=== PATIENT | female | born 1965 | race African-American/Black ===

== ENCOUNTER 2016-12-09 11:10 | Inpatient (IN) | payer OTHER ==
[2016-12-09 13:06] VITALS: BMI 25.8
--- NOTE | 2016-12-09 14:57 | HP ---
CIWA Score - CIWA Score Nausea/Vomitin-No Nausea/No Vomiting Muscle Tremors: 4-Moderate,w/Arms Extend Anxiety: 3 Agitation: 4-Moderately Restless Paroxysmal Sweats: 3 Orientation: 0-Oriented Tacttile Disturbances: 0-None Auditory Disturbances: 0-None Visual Disturbances: 0-None Headache: 2-Mild CIWA-Ar Total Score: 16 Admission ROS BHS - HPI Chief Complaint: I am here to detox. Allergies/Adverse Reactions: Allergies Allergy/AdvReac Type Severity Reaction Status Date / Time No Known Allergies Allergy Verified 12/09/16 13:42 History of Present Illness: pt is a 50yr old female with a history of alcohol dependence seeking detox for treatment. Pt is also on a MMTP program receives 150mg last dose today; pending verification. Exam Limitations: No Limitations - Ebola screening Have you traveled outside of the country in the last 21 days: No Have you had contact with anyone from an Ebola affected area: No Have you been sick,other than usual withdrawal symptoms: No Do you have a fever: No - Review of Systems Constitutional: Chills, Diaphoresis, Loss of Appetite, Night Sweats, Unintentional Wgt. Loss EENT: reports: No Symptoms Reported Respiratory: reports: No Symptoms reported Cardiac: reports: Syncope GI: reports: Nausea, Vomiting : reports: No Symptoms Reported, Other (had received ABX for trichanomas on 04/25 took all 4 pills. denies any vaginal d/c at present. encourged to advised medical for any changes.) Musculoskeletal: reports: No Symptoms Reported Integumentary: reports: Flushing, Rash (under breast), Sweating Neuro: reports: Tingling, Tremors Endocrine: reports: Excessive Sweating, Flushing, Intolerance to Cold, Intolerance to Heat, Other (I am going through menapause) Hematology: reports: No Symptoms Reported Psychiatric: reports: Judgement Intact, Mood/Affect Appropiate, Orientated x3, Agitated, Anxious Other Systems: Reviewed and Negative Patient History - Patient Medical History Hx Anemia: Yes Hx Asthma: No Hx Chronic Obstructive Pulmonary Disease (COPD): Yes (spiriva) Hx Cancer: No Hx Cardiac Disorders: No Hx Congestive Heart Failure: No Hx Hypertension: Yes (procardia) Hx Hypercholesterolemia: No Hx Pacemaker: No HX Cerebrovascular Accident: No Hx Seizures: No Hx Dementia: No Hx Diabetes: No Hx Gastrointestinal Disorders: No Hx Liver Disease: No Hx Genitourinary Disorders: No Hx Sexually Transmitted Disorders: No Hx Renal Disease (ESRD): No Hx Thyroid Disease: No Hx Human Immunodeficiency Virus (HIV): No (negative) Hx Hepatitis C: No (negative) Hx Depression: Yes Hx Suicide Attempt: No (denies) Hx Bipolar Disorder: Yes Hx Schizophrenia: No Other Medical History: ptsd - Patient Surgical History Past Surgical History: No Anesthesia Reaction: No - PPD History Previous Implant?: Yes Documented Results: Negative w/o proof Implanted On Prior [facility] Admission?: No PPD to be Administered?: Yes - Reproductive History Patient is a Female of Child Bearing Age (11 -55 yrs old): No Patient : No - Smoking Cessation Smoking history: Current every day smoker Have you smoked in the past 12 months: Yes Aproximately how many cigarettes per day: 4 Hx Chewing Tobacco Use: No Initiated information on smoking cessation: Yes 'Breaking Loose' booklet given: 12/09/16 - Substance & Tx. History Hx Alcohol Use: Yes Hx Substance Use: No Substance Use Type: Alcohol Hx Substance Use Treatment: Yes - Substances Abused Alcohol Route: Oral Frequency: Daily Amount used: beer(4-6 pks-24 oz cans) Age of first use: 27 Date of Last Use: 12/09/16 Family Disease History - Family Disease History Family History: Denies Admission Physical Exam S - Vital Signs Vital Signs: Vital Signs - 24 hr 12/09/16 13:02 Temperature 97 F L Pulse Rate 84 Respiratory 20 Rate Blood Pressure 146/96 - Physical General Appearance: Yes: Appropriately Dressed, Moderate Distress, Tremorous, Irritable, Sweating, Anxious HEENTM: Yes: Normal Voice, Nasal Congestion Respiratory: Yes: Lungs Clear, Normal Breath Sounds, No Respiratory Distress Neck: Yes: No masses,lesions,Nodules Breast: Yes: Within Normal Limits Cardiology: Yes: Regular Rhythm, Regular Rate, S1, S2 Abdominal: Yes: Normal Bowel Sounds, Non Tender, Soft Genitourinary: Yes: Within Normal Limits Back: Yes: Normal Inspection Musculoskeletal: Yes: full range of Motion Extremities: Yes: Normal Inspection, Non-Tender, Tremors Neurological: Yes: Fully Oriented, Alert, Normal Response Integumentary: Yes: Diaphoresis Lymphatic: Yes: Within Normal Limits - Diagnostic (1) Alcohol dependence with uncomplicated withdrawal Current Visit: Yes Status: Chronic (2) Methadone maintenance therapy patient Current Visit: Yes Status: Chronic (3) Nicotine dependence Current Visit: Yes Status: Chronic Qualifiers: Nicotine product type: cigarettes Substance use status: uncomplicated Qualified Code(s): F17.210 - Nicotine dependence, cigarettes, uncomplicated (4) COPD (chronic obstructive pulmonary disease) Current Visit: Yes Status: Chronic (5) Post traumatic stress disorder (PTSD) Current Visit: Yes Status: Chronic Cleared for Admission [facility] - Detox or Rehab [facility] Level of Care: Medically Managed Detox Regimen/Protocol: Librium [facility] Breath Alcohol Content Breath Alcohol Content: 0.212 Urine Pregancy Test - Result Urine Test Results: Negative- NO Line Present Urine Drug Screen - Results Drug Screen Negative: No Urine Drug Screen Results: OPI-Opiates, BZO-Benzodiazepines, MTD-Methadone
[2016-12-09] MEDS ORDERED: guaiFENesin/D-METHORPHAN HB 10 ML UNIT-DOSE CUPS PO PRN (15:31)
[2016-12-09] MEDS ORDERED: MENTHOL/PHENOL 1 EACH UD MM PRN (15:31)
[2016-12-09] MEDS ORDERED: LOPERAMIDE HCL 2 MG CAPSULE PO PRN (15:31)
[2016-12-09] MEDS ORDERED: ACETAMINOPHEN 325 MG TABLET (FP) PO PRN (15:31)
[2016-12-09] MEDS ORDERED: hydrOXYzine PAMOATE 50 MG CAPSULE (FP) PO PRN (15:31)
[2016-12-09] MEDS ORDERED: chlordiazePOXIDE HCL 25 MG CAPSULE PO PRN (15:31)
[2016-12-09] MEDS ORDERED: MAGNESIUM HYDROX 2400MG/30ML ORAL SUSPENSION 30 ML CUP PO PRN (15:31)
[2016-12-09] MEDS ORDERED: MAGNESIUM CITRATE 300 ML BOTTLE PO PRN (15:31)
[2016-12-09] MEDS ORDERED: P-EPHED 60MG/TRIPROLIDI 2.5MG TABLET PO PRN (15:31)
[2016-12-09] MEDS ORDERED: diphenhydrAMINE HCL 50 MG CAPSULE PO PRN (15:31)
[2016-12-09] MEDS ORDERED: NICOTINE POLACRILEX 4 MG GUM BC PRN (15:31)
[2016-12-09] MEDS ORDERED: MAG HYDROX/AL HYDROX/SIMETH 30 ML UNIT-DOSE CUP PO PRN (15:31)
[2016-12-09] MEDS ORDERED: ALBUTEROL SO4 2.5/IPRATROPIUM 0.5 INH SOL 3 ML VIAL.NEB. NEB PRN (15:36)
[2016-12-09] MEDS: ASPIRIN COATED 81 MG TABLET.EC PO SCH (16:00)
[2016-12-09] MEDS: NIFEdipine E.R. 30 MG TABLET (FP) PO SCH (16:00)
[2016-12-09] MEDS ORDERED: chlordiazePOXIDE HCL 25 MG CAPSULE PO ONE (16:00)
[2016-12-09] MEDS ORDERED: ALBUTEROL SO4 2.5/IPRATROPIUM 0.5 INH SOL 3 ML VIAL.NEB. NEB ONE (16:00)
[2016-12-09] MEDS: chlordiazePOXIDE HCL 25 MG CAPSULE PO SCH ×2 (17:10→22:29)
[2016-12-09] MEDS: TIOTROPIUM BROMIDE NR SCH ×2 (18:36→23:35)
[2016-12-09 20:23] LABS: URINE APPEARANCE CLEAR; URINE BILIRUBIN NEGATIVE (NEGATIVE); URINE BLOOD 1+ (NEGATIVE); URINE COLOR STRAW; URINE GLUCOSE (UA) NEGATIVE (NEGATIVE); URINE KETONE NEGATIVE (NEGATIVE); URINE LEUK ESTERASE NEGATIVE (NEGATIVE); URINE NITRITE NEGATIVE (NEGATIVE); URINE PROTEIN NEGATIVE (NEGATIVE); URINE UROBILINOGEN NEGATIVE E.U./dl (0.2-1.0)
[2016-12-09 20:28] LABS: URINE RBC 2 /hpf (0-3); URINE WBC <1 /hpf (3-5)
[2016-12-09] MEDS: THIAMINE HCL 100 MG TABLET (FP) PO SCH (22:28)
[2016-12-10] MEDS: chlordiazePOXIDE HCL 25 MG CAPSULE PO SCH ×4 (05:48→22:29)
[2016-12-10] MEDS ORDERED: METHADONE HCL 10 MG TABLET PO SCH (10:00)
[2016-12-10 10:33] LABS: ALBUMIN 4.2 g/dl (3.4-5.0); ALK PHOS 380 U/L (45-117); ANION GAP 7 (8-16); BILIRUBIN,TOTAL 0.4 mg/dL (0.2-1.0); CALCIUM 8.9 mg/dL (8.5-10.1); CO2 31 mmol/L (21-32); COCKROFT - GAULT 95.3105; CREATININE 0.8 mg/dL (0.55-1.02); GLUCOSE,RANDOM 73 mg/dL (74-106); SGOT/AST 197 U/L (15-37); SGPT/ALT 123 U/L (12-78); TOT PROT 8.3 g/dl (6.4-8.2)
[2016-12-10 10:48] LABS: MCH 30.6 pg (25.7-33.7); MCHC 33.2 g/dl (32.0-36.0); MEAN CELL VOLUME 92.2 fl (80-96); MEAN PLT VOLUME 8.7 fl (7.5-11.1); PLATELET COUNT 223 K/MM3 (134-434); RDW 14.3 % (11.6-15.6); WHITE BLOOD COUNT 6.4 K/mm3 (4.0-10.0)
[2016-12-10] MEDS ORDERED: METHADONE HCL 40 MG DISPERSABLE TABLET ONE (10:50)
[2016-12-10] MEDS ORDERED: METHADONE HCL 10 MG TABLET ONE (10:50)
[2016-12-10] MEDS: METHADONE 120 MG, METHADONE 30 MG PO SCH (10:51)
[2016-12-10] MEDS: TIOTROPIUM BROMIDE NR SCH ×2 (10:52→22:32)
[2016-12-10] MEDS: PRENATAL VITAMINS W/ FOLIC ACID TABLET (FP) PO SCH (10:52)
[2016-12-10] MEDS: NIFEdipine E.R. 30 MG TABLET (FP) PO SCH (10:53)
[2016-12-10] MEDS: ASPIRIN COATED 81 MG TABLET.EC PO SCH (10:53)
[2016-12-10] MEDS: NICOTINE 21 MG/24 HOURS TOPICAL PATCH TD SCH (10:54)
--- NOTE | 2016-12-10 13:52 | PN ---
[facility] CIWA - CIWA Score Nausea/Vomitin Muscle Tremors: 4-Moderate,w/Arms Extend Anxiety: 4-Mod. Anxious/Guarded Agitation: 4-Moderately Restless Paroxysmal Sweats: 3 Orientation: 0-Oriented Tacttile Disturbances: 0-None Auditory Disturbances: 0-None Visual Disturbances: 0-None Headache: 0-None Present CIWA-Ar Total Score: 17 BHS Progress Note (SOAP) Subjective: Sweating,interrupted sleep,anxiety,tremors,restless. Objective: 12/10/16 13:50 Vital Signs - 8 hr 12/10/16 12/10/16 06:36 10:00 Temperature 98.1 F 97.7 F Pulse Rate 76 86 Respiratory 18 18 Rate Blood Pressure 138/90 123/74 Laboratory Last Values WBC 6.4 K/mm3 (4.0-10.0) 12/10/16 06:00 RBC 4.18 M/mm3 (3.60-5.2) 12/10/16 06:00 Hgb 12.8 GM/dL (10.7-15.3) 12/10/16 06:00 Hct 38.6 % (32.4-45.2) 12/10/16 06:00 MCV 92.2 fl (80-96) 12/10/16 06:00 MCHC 33.2 g/dl (32.0-36.0) 12/10/16 06:00 RDW 14.3 % (11.6-15.6) 12/10/16 06:00 Plt Count 223 K/MM3 (134-434) 12/10/16 06:00 MPV 8.7 fl (7.5-11.1) 12/10/16 06:00 Sodium 136 mmol/L (136-145) 12/10/16 06:00 Potassium 4.5 mmol/L (3.5-5.1) 12/10/16 06:00 Chloride 98 mmol/L (98-107) 12/10/16 06:00 Carbon Dioxide 31 mmol/L (21-32) 12/10/16 06:00 Anion Gap 7 (8-16) L 12/10/16 06:00 BUN 15 mg/dL (7-18) 12/10/16 06:00 Creatinine 0.8 mg/dL (0.55-1.02) 12/10/16 06:00 Creat Clearance w eGFR > 60 (>60) 12/10/16 06:00 Random Glucose 73 mg/dL (74-106) L 12/10/16 06:00 Calcium 8.9 mg/dL (8.5-10.1) 12/10/16 06:00 Total Bilirubin 0.4 mg/dL (0.2-1.0) 12/10/16 06:00 AST 197 U/L (15-37) H 12/10/16 06:00 ALT 123 U/L (12-78) H 12/10/16 06:00 Alkaline Phosphatase 380 U/L (45-117) H 12/10/16 06:00 Total Protein 8.3 g/dl (6.4-8.2) H 12/10/16 06:00 Albumin 4.2 g/dl (3.4-5.0) 12/10/16 06:00 Urine Color Straw 12/09/16 13:00 Urine Appearance Clear 12/09/16 13:00 Urine pH 5.0 (5.0-8.0) 12/09/16 13:00 Ur Specific [place] <= 1.005 (1.005-1.025) 12/09/16 13:00 Urine Protein Negative (NEGATIVE) 12/09/16 13:00 Urine Glucose (UA) Negative (NEGATIVE) 12/09/16 13:00 Urine Ketones Negative (NEGATIVE) 12/09/16 13:00 Urine Blood 1+ (NEGATIVE) H 12/09/16 13:00 Urine Nitrite Negative (NEGATIVE) 12/09/16 13:00 Urine Bilirubin Negative (NEGATIVE) 12/09/16 13:00 Urine Urobilinogen Negative E.U./dl (0.2-1.0) 12/09/16 13:00 Ur Leukocyte Esterase Negative (NEGATIVE) 12/09/16 13:00 Urine RBC 2 /hpf (0-3) 12/09/16 13:00 Urine WBC <1 /hpf (3-5) 12/09/16 13:00 Ur Epithelial Cells Few /hpf (FEW) 12/09/16 13:00 labs noted Assessment: 12/10/16 13:51 Withdrawal sx. Plan: Continue detox
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
--- NOTE | 2016-12-10 19:24 | EKG ---
Test Reason : Blood Pressure : / mmHG Vent. Rate : 071 BPM Atrial Rate : 071 BPM P-R Int : 172 ms QRS Dur : 092 ms QT Int : 416 ms P-R-T Axes : 055 057 035 degrees QTc Int : 452 ms NORMAL SINUS RHYTHM NONSPECIFIC T WAVE ABNORMALITY ABNORMAL ECG NO PREVIOUS ECGS AVAILABLE Confirmed by JOE BRYANT MD ([id number]) on 12/10/2016 7:23:33 PM Referred By: Confirmed By:JOE BRYANT MD
[2016-12-10] MEDS: busPIRone HCL 10 MG TABLET (FP) PO SCH (22:30)
[2016-12-10] MEDS: MIRTAZAPINE 15 MG TABLET (FP) PO SCH (22:30)
[2016-12-10] MEDS: QUEtiapine FUMARATE 100 MG TABLET (FP) PO SCH (22:30)
[2016-12-10] MEDS: THIAMINE HCL 100 MG TABLET (FP) PO SCH (22:32)
[2016-12-11] MEDS ORDERED: METHADONE HCL 40 MG DISPERSABLE TABLET ONE (05:07)
[2016-12-11] MEDS ORDERED: METHADONE HCL 10 MG TABLET ONE (05:08)
[2016-12-11] MEDS: METHADONE 120 MG, METHADONE 30 MG PO SCH (05:45)
[2016-12-11] MEDS: chlordiazePOXIDE HCL 25 MG CAPSULE PO SCH ×2 (07:19→10:34)
[2016-12-11] MEDS: PRENATAL VITAMINS W/ FOLIC ACID TABLET (FP) PO SCH (10:33)
[2016-12-11] MEDS: busPIRone HCL 10 MG TABLET (FP) PO SCH ×2 (10:33→22:27)
[2016-12-11] MEDS: NIFEdipine E.R. 30 MG TABLET (FP) PO SCH (10:33)
[2016-12-11] MEDS: TIOTROPIUM BROMIDE NR SCH ×2 (10:33→22:28)
[2016-12-11] MEDS: ASPIRIN COATED 81 MG TABLET.EC PO SCH (10:33)
[2016-12-11] MEDS: NICOTINE 21 MG/24 HOURS TOPICAL PATCH TD SCH (10:37)
--- NOTE | 2016-12-11 10:50 | PN ---
S CIWA - CIWA Score Nausea/Vomitin-No Nausea/No Vomiting Muscle Tremors: 4-Moderate,w/Arms Extend Anxiety: 3 Agitation: 4-Moderately Restless Paroxysmal Sweats: 3 Orientation: 0-Oriented Tacttile Disturbances: 0-None Auditory Disturbances: 0-None Visual Disturbances: 0-None Headache: 0-None Present CIWA-Ar Total Score: 14 BHS Progress Note (SOAP) Subjective: Anxiety,tremors,sweating,interrupted sleep,restless Objective: 12/11/16 10:49 Vital Signs - 8 hr 12/11/16 12/11/16 12/11/16 03:30 06:00 09:59 Temperature 97.9 F 99.7 F H Pulse Rate 86 83 Respiratory 18 18 18 Rate Blood Pressure 124/79 116/80 Laboratory Tests 12/09/16 12/10/16 12/10/16 13:00 06:00 06:00 WBC 6.4 RBC 4.18 Hgb 12.8 Hct 38.6 MCV 92.2 MCHC 33.2 RDW 14.3 Plt Count 223 MPV 8.7 Sodium 136 Potassium 4.5 Chloride 98 Carbon Dioxide 31 Anion Gap 7 L BUN 15 Creatinine 0.8 Creat Clearance w eGFR > 60 Random Glucose 73 L Calcium 8.9 Total Bilirubin 0.4 AST 197 H ALT 123 H Alkaline Phosphatase 380 H Total Protein 8.3 H Albumin 4.2 Urine Color Straw Urine Appearance Clear Urine pH 5.0 Ur Specific [place] <= 1.005 Urine Protein Negative Urine Glucose (UA) Negative Urine Ketones Negative Urine Blood 1+ H Urine Nitrite Negative Urine Bilirubin Negative Urine Urobilinogen Negative Ur Leukocyte Esterase Negative Urine RBC 2 Urine WBC <1 Ur Epithelial Cells Few labs noted Assessment: 12/11/16 10:49 Withdrawal sx. Plan: Continue detox
[2016-12-11] MEDS: chlordiazePOXIDE 5 MG CAPSULE PO SCH ×2 (17:07→22:27)
[2016-12-11] MEDS: MIRTAZAPINE 15 MG TABLET (FP) PO SCH (22:28)
[2016-12-11] MEDS: QUEtiapine FUMARATE 100 MG TABLET (FP) PO SCH (22:28)
[2016-12-11] MEDS: THIAMINE HCL 100 MG TABLET (FP) PO SCH (22:29)
[2016-12-12] MEDS: IBUPROFEN 400 MG TABLET (FP) PO PRN ×2 (01:42→17:16)
[2016-12-12] MEDS ORDERED: METHADONE HCL 40 MG DISPERSABLE TABLET ONE (03:46)
[2016-12-12] MEDS ORDERED: METHADONE HCL 10 MG TABLET ONE (03:47)
[2016-12-12] MEDS: chlordiazePOXIDE 5 MG CAPSULE PO SCH ×2 (05:40→10:42)
[2016-12-12] MEDS: METHADONE 120 MG, METHADONE 30 MG PO SCH (05:40)
--- NOTE | 2016-12-12 09:53 | PN ---
BHS Progress Note (SOAP) Subjective: back pain sweats Objective: 12/12/16 12:38 Vital Signs Temperature 98.2 F 12/12/16 10:00 Pulse Rate 88 12/12/16 10:00 Respiratory Rate 20 12/12/16 10:00 Blood Pressure 106/68 12/12/16 10:00 O2 Sat by Pulse Oximetry (%) awake/alert ambulating no acute distress Assessment: 12/12/16 12:38 mild withdrawal sx Plan: continue detox lidocaine patch d/c in am
[2016-12-12] MEDS: NICOTINE 21 MG/24 HOURS TOPICAL PATCH TD SCH (10:41)
[2016-12-12] MEDS: busPIRone HCL 10 MG TABLET (FP) PO SCH ×2 (10:42→22:22)
[2016-12-12] MEDS: NIFEdipine E.R. 30 MG TABLET (FP) PO SCH (10:42)
[2016-12-12] MEDS: PRENATAL VITAMINS W/ FOLIC ACID TABLET (FP) PO SCH (10:42)
[2016-12-12] MEDS: ASPIRIN COATED 81 MG TABLET.EC PO SCH (10:42)
[2016-12-12] MEDS: TIOTROPIUM BROMIDE NR SCH ×2 (10:42→22:23)
[2016-12-12] MEDS ORDERED: LIDOCAINE 5% TOPICAL PATCH TP ONE (12:40)
[2016-12-12 14:15] LABS: ALK PHOS 252 U/L (45-117); SGOT/AST 42 U/L (15-37); SGPT/ALT 57 U/L (12-78)
[2016-12-12] MEDS: chlordiazePOXIDE HCL 10 MG CAPSULE PO SCH ×2 (17:14→22:22)
--- NOTE | 2016-12-12 17:43 | PN ---
BHS Progress Note Note: NURSE CALLED TO REPORT PT C/O GREEN SPUTUM X 2 DAYS. TEMP 102.2 NOW. HX COPD PLAN:AUGMENTIN 875 MG PO BID INCREASE PO FLUIDS
[2016-12-12] MEDS: AMOX TR/POT CLAV 875MG/125MG TABLETS (FP) PO SCH (17:59)
[2016-12-12] MEDS ORDERED: LIDOCAINE PATCH REMOVAL MC SCH (22:00)
[2016-12-12] MEDS: MIRTAZAPINE 15 MG TABLET (FP) PO SCH (22:22)
[2016-12-12] MEDS: QUEtiapine FUMARATE 100 MG TABLET (FP) PO SCH (22:22)
[2016-12-12] MEDS: THIAMINE HCL 100 MG TABLET (FP) PO SCH (22:22)
[2016-12-13] MEDS ORDERED: METHADONE HCL 10 MG TABLET ONE (05:14)
[2016-12-13] MEDS ORDERED: METHADONE HCL 40 MG DISPERSABLE TABLET ONE (05:14)
[2016-12-13] MEDS: METHADONE 120 MG, METHADONE 30 MG PO SCH (07:07)
[2016-12-13] MEDS: AMOX TR/POT CLAV 875MG/125MG TABLETS (FP) PO SCH (07:08)
[2016-12-13] MEDS: chlordiazePOXIDE HCL 10 MG CAPSULE PO SCH ×2 (07:08→10:43)
[2016-12-13] MEDS: IBUPROFEN 400 MG TABLET (FP) PO PRN (07:10)
--- NOTE | 2016-12-13 09:31 | DS ---
[facility] Detox Discharge Summary Admission Date: 12/09/16 Discharge Date: 12/13/16 - History Present History: Alcohol Dependence, MMTP Additional Comments: pt was advised to stay for a chest x-ray since she was having a low grade temp last night; however pt refused for this test and would want to have ABX and she will f/u with her PMD on the outside. V/S before d/c 125/75 pulse 101, RR 16 temp 99.3. pt is AAOx3, no respiratory distress. - Physical Exam Results Vital Signs: Vital Signs Temperature 102.2 F H 12/13/16 06:38 Pulse Rate 105 H 12/13/16 06:38 Respiratory Rate 16 12/13/16 06:38 Blood Pressure 122/67 12/13/16 06:38 O2 Sat by Pulse Oximetry (%) - Treatment Hospital Course: Detox Protocol Followed, Detoxed Safely, Responded well, Discharged Condition Good, Rehab Referral Accepted - Medication Discharge Medications: Ambulatory Orders Alprazolam [Xanax] 2 mg PO DAILY 12/09/16 Aspirin [Ecotrin] 81 mg PO DAILY 12/09/16 Buspirone HCl [Buspar -] 10 mg PO BID 12/09/16 Mirtazapine [Remeron -] 30 mg PO HS 12/09/16 Nifedipine ER [Procardia Xl -] 30 mg PO DAILY 12/09/16 Quetiapine Fumarate [Seroquel -] 100 mg PO HS 12/09/16 Tiotropium [place] [Spiriva Respimat] 4 gm IH BID 12/09/16 Amox-Tr/K Cl [Augmentin 875-125mg Tablet -] 1 tab PO BID@0800,1730 #14 tablet - Diagnosis (1) Alcohol dependence with uncomplicated withdrawal Current Visit: Yes Status: Chronic (2) Methadone maintenance therapy patient Current Visit: Yes Status: Chronic (3) Nicotine dependence Current Visit: Yes Status: Chronic Qualifiers: Nicotine product type: cigarettes Substance use status: uncomplicated Qualified Code(s): F17.210 - Nicotine dependence, cigarettes, uncomplicated (4) COPD (chronic obstructive pulmonary disease) Current Visit: Yes Status: Chronic Qualifiers: Chronic bronchitis type: unspecified (5) Post traumatic stress disorder (PTSD) Current Visit: Yes Status: Chronic - AMA Did Patient Leave Against Medical Advice: No
[2016-12-13] MEDS: PRENATAL VITAMINS W/ FOLIC ACID TABLET (FP) PO SCH (10:42)
[2016-12-13] MEDS: ASPIRIN COATED 81 MG TABLET.EC PO SCH (10:42)
[2016-12-13] MEDS: NIFEdipine E.R. 30 MG TABLET (FP) PO SCH (10:42)
[2016-12-13] MEDS: busPIRone HCL 10 MG TABLET (FP) PO SCH (10:42)
[2016-12-13] MEDS: NICOTINE 21 MG/24 HOURS TOPICAL PATCH TD SCH (10:43)
[2016-12-13] MEDS: TIOTROPIUM BROMIDE NR SCH (10:43)
[2016-12-13 10:53] VITALS: BP 125/75; PULSE 101; TEMP 99.3
--- NOTE | 2016-12-13 11:57 | PN ---
BHS Progress Note Note: chest x-ray indicate a right middle lobe infiltrate and she is to follow up with her PMD. pt is also to continue her ABX as prescribed. A copy of chest x- ray report provided for pt to take home.
== END 2016-12-13 13:20 | disposition home or self-care (01) | DRG 773 ==
LOC: EDSEX 11:10 → YASAS 11:10 → Y6N 14:34
PROVIDERS: ADMIT Internal Medicine; ATTEND Internal Medicine
PROC: HZ2ZZZZ Detoxification Services for Substance Abuse Treatment (ICD-10-PCS; principal; 2016-12-13)
DX: F11.20 Opioid dependence, uncomplicated (principal); F10.230 Alcohol dependence with withdrawal, uncomplicated; F17.210 Nicotine dependence, cigarettes, uncomplicated; F19.24 Other psychoactive substance dependence with psychoactive substance-induced mood disorder; F43.10 Post-traumatic stress disorder, unspecified; G47.00 Insomnia, unspecified; J44.9 Chronic obstructive pulmonary disease, unspecified
CPT/HCPCS: 36415; 71020-TC; 80053; 81003; 81015; 84075; 84450; 84460; 85027; 86593; 93005; 93010; 94640

== ENCOUNTER 2023-07-20 20:27 | Inpatient (IN) | payer OTHER ==
[2023-07-20 21:47] VITALS: BMI 16.9
[2023-07-20] MEDS ORDERED: BISMUTH SUBSALICYLATE 524 MG/30 ML PO PRN (22:44)
[2023-07-20] MEDS ORDERED: MAG HYDROX/AL HYDROX/SIMETH 30 ML UNIT-DOSE CUP PO PRN (22:44)
[2023-07-20] MEDS ORDERED: DICYCLOMINE HCL 10 MG CAPSULE PO PRN (22:44)
[2023-07-20] MEDS ORDERED: BENZONATATE 200 MG CAPSULE PO PRN (22:44)
[2023-07-20] MEDS ORDERED: NICOTINE POLACRILEX 2 MG LOZENGE BC PRN (22:44)
[2023-07-20] MEDS ORDERED: BENZOCAINE/MENTHOL (CHLORASEPTIC ) LOZENGE MM PRN (22:44)
[2023-07-20] MEDS ORDERED: guaiFENesin 600 MG TABLET.ER (FP) PO PRN (22:44)
[2023-07-20] MEDS ORDERED: MAGNESIUM HYDROX 2400MG/30ML ORAL SUSPENSION 30 ML CUP PO PRN (22:44)
[2023-07-20] MEDS ORDERED: NALOXONE HCL (KLOXXADO) 8 MG SPRAY NS PRN (22:44)
[2023-07-20] MEDS ORDERED: NALOXONE HCL 0.4 MG/ML VIAL IM PRN (22:44)
[2023-07-20] MEDS ORDERED: ONDANSETRON *ODT* 4 MG TABLET SL PRN (22:44)
[2023-07-20] MEDS ORDERED: IBUPROFEN 400 MG TABLET (FP) PO PRN (22:44)
[2023-07-20] MEDS ORDERED: IBUPROFEN 600 MG TABLET (FP) PO PRN (22:44)
[2023-07-20] MEDS ORDERED: LOPERAMIDE HCL 2 MG CAPSULE PO PRN (22:44)
[2023-07-20] MEDS ORDERED: POLYETHYLENE GLYCOL (HEALTHYLAX) 3350 17 GM PACKET PO PRN (22:44)
[2023-07-21] MEDS ORDERED: ALBUTEROL SO4 HFA INHALER IH PRN (03:13)
[2023-07-21] MEDS: DOXYCYCLINE HYCLATE 100 MG TABLET PO SCH ×2 (08:46→17:57)
[2023-07-21] MEDS: NICOTINE 14 MG/24 HOURS TOPICAL PATCH TD SCH (09:46)
[2023-07-21] MEDS: AMOX TR/POT CLAV 875MG/125MG TABLETS (FP) PO SCH ×2 (09:46→22:41)
[2023-07-21] MEDS: PRENATAL VITAMINS W/ FOLIC ACID TABLET (FP) PO SCH (09:46)
[2023-07-21 10:17] LABS: CHLORIDE 103 mmol/L (98-107); POTASSIUM 4.5 mmol/L (3.5-5.1); SODIUM 140 mmol/L (136-145)
[2023-07-21 10:26] LABS: CALCIUM 8.2 mg/dL (8.5-10.1)
[2023-07-21 10:27] LABS: ALBUMIN 2.4 g/dl (3.4-5.0); ANION GAP 6 mmol/L (4-13); BLOOD UREA NITROGEN 59.3 mg/dL (7-18); CO2 32 mmol/L (21-32); GLUCOSE,RANDOM 80 mg/dL (74-106)
[2023-07-21 10:30] LABS: CREATININE 1.8 mg/dL (0.55-1.3); SGOT/AST 52 U/L (15-37); SGPT/ALT 49 U/L (13-61)
[2023-07-21 10:32] LABS: TOT PROT 6.5 g/dl (6.4-8.2)
[2023-07-21 10:33] LABS: ALK PHOS 150 U/L (45-117)
[2023-07-21] MEDS ORDERED: methaDONE HCL 10 MG TABLET (FOR DETOX USE ONLY) PO ONE (10:39)
[2023-07-21 10:40] LABS: BILIRUBIN,TOTAL 0.2 mg/dL (0.2-1)
[2023-07-21] MEDS: cloNIDine HCL 0.1 MG TABLET PO PRN (10:58)
[2023-07-21 11:05] LABS: HEMATOCRIT 29.6 % (32.4-45.2); HEMOGLOBIN 9.4 GM/dL (10.7-15.3); MCH 26.9 pg (25.7-33.7); MCHC 31.7 g/dl (32.0-36.0); MEAN CELL VOLUME 84.9 fl (80-96); PLATELET COUNT 276 10^3/uL (134-434); RBC 3.48 M/mm3 (3.60-5.2); RDW 18.1 % (11.6-15.6); WHITE BLOOD COUNT 9.1 K/mm3 (4.0-10.0)
[2023-07-21 12:48] LABS: HIV INTERPRETATION NEGATIVE (NEGATIVE)
[2023-07-21] MEDS ORDERED: P-EPHED 60MG/TRIPROLIDI 2.5MG TABLET PO PRN (14:26)
[2023-07-21] MEDS: ACETAMINOPHEN 325 MG TABLET (FP) PO PRN (17:56)
[2023-07-21] MEDS: hydrOXYzine PAMOATE 25 MG CAPSULE (FP) PO PRN (20:47)
[2023-07-21] MEDS: MELATONIN 5 MG TABLETS PO SCH (22:40)
[2023-07-21] MEDS: THIAMINE HCL 100 MG TABLET (FP) PO SCH (22:41)
[2023-07-22] MEDS: DOXYCYCLINE HYCLATE 100 MG TABLET PO SCH ×2 (05:49→18:06)
[2023-07-22] MEDS: cloNIDine HCL 0.1 MG TABLET PO PRN ×2 (05:50→14:56)
[2023-07-22] MEDS: AMOX TR/POT CLAV 875MG/125MG TABLETS (FP) PO SCH ×2 (09:16→23:23)
[2023-07-22] MEDS: PRENATAL VITAMINS W/ FOLIC ACID TABLET (FP) PO SCH (09:17)
[2023-07-22] MEDS: NICOTINE 14 MG/24 HOURS TOPICAL PATCH TD SCH (09:17)
[2023-07-22] MEDS: hydrOXYzine PAMOATE 25 MG CAPSULE (FP) PO PRN ×2 (09:19→18:06)
[2023-07-22] MEDS: NIFEdipine E.R. 30 MG TABLET PO SCH (19:47)
[2023-07-22] MEDS: MELATONIN 5 MG TABLETS PO SCH (23:23)
[2023-07-22] MEDS: THIAMINE HCL 100 MG TABLET (FP) PO SCH (23:23)
[2023-07-23] MEDS: cloNIDine HCL 0.1 MG TABLET PO PRN (05:43)
[2023-07-23] MEDS: DOXYCYCLINE HYCLATE 100 MG TABLET PO SCH ×2 (05:43→17:50)
[2023-07-23] MEDS ORDERED: methaDONE HCL 10 MG TABLET (FOR DETOX USE ONLY) PO ONE (10:00)
[2023-07-23] MEDS: AMOX TR/POT CLAV 875MG/125MG TABLETS (FP) PO SCH ×2 (10:06→22:35)
[2023-07-23] MEDS: NICOTINE 14 MG/24 HOURS TOPICAL PATCH TD SCH (10:07)
[2023-07-23] MEDS: PRENATAL VITAMINS W/ FOLIC ACID TABLET (FP) PO SCH (10:07)
[2023-07-23] MEDS: NIFEdipine E.R. 30 MG TABLET PO SCH (10:07)
[2023-07-23 15:46] LABS: POTASSIUM 4.8 mmol/L (3.5-5.1)
[2023-07-23 15:51] LABS: CALCIUM 8.4 mg/dL (8.5-10.1)
[2023-07-23 15:55] LABS: CREATININE 1.1 mg/dL (0.55-1.3)
[2023-07-23 15:57] LABS: BLOOD UREA NITROGEN 31.4 mg/dL (7-18)
[2023-07-23] MEDS: ACETAMINOPHEN 325 MG TABLET (FP) PO PRN (17:50)
[2023-07-23] MEDS: MELATONIN 5 MG TABLETS PO SCH (22:35)
[2023-07-23] MEDS: THIAMINE HCL 100 MG TABLET (FP) PO SCH (22:35)
[2023-07-24] MEDS: DOXYCYCLINE HYCLATE 100 MG TABLET PO SCH ×2 (05:43→17:17)
[2023-07-24] MEDS: cloNIDine HCL 0.1 MG TABLET PO PRN (05:43)
[2023-07-24] MEDS: hydrOXYzine PAMOATE 25 MG CAPSULE (FP) PO PRN (05:45)
[2023-07-24] MEDS: ACETAMINOPHEN 325 MG TABLET (FP) PO PRN (06:00)
[2023-07-24] MEDS: AMOX TR/POT CLAV 875MG/125MG TABLETS (FP) PO SCH ×2 (09:58→22:16)
[2023-07-24] MEDS: PRENATAL VITAMINS W/ FOLIC ACID TABLET (FP) PO SCH (09:59)
[2023-07-24] MEDS: NICOTINE 14 MG/24 HOURS TOPICAL PATCH TD SCH (09:59)
[2023-07-24] MEDS: NIFEdipine E.R. 30 MG TABLET PO SCH (09:59)
[2023-07-24] MEDS ORDERED: methaDONE HCL 10 MG TABLET PO ONE (10:25)
[2023-07-24] MEDS ORDERED: TIOTROPIUM BROMIDE 2.5 MCG (SPIRIVA) RESPIMAT INHALER IH SCH ×2 (12:35→22:00)
[2023-07-24 17:36] VITALS: RESP 16
[2023-07-24] MEDS: MELATONIN 5 MG TABLETS PO SCH (22:16)
[2023-07-24] MEDS: THIAMINE HCL 100 MG TABLET (FP) PO SCH (22:16)
[2023-07-25] MEDS: DOXYCYCLINE HYCLATE 100 MG TABLET PO SCH (05:56)
[2023-07-25 06:28] VITALS: BP 143/83; PULSE 67; TEMP 99.1
[2023-07-25] MEDS ORDERED: methaDONE HCL 10 MG TABLET (FOR DETOX USE ONLY) PO ONE (10:00)
[2023-07-25] MEDS: PRENATAL VITAMINS W/ FOLIC ACID TABLET (FP) PO SCH (10:46)
== END 2023-07-25 08:38 | disposition home or self-care (01) | DRG 773 ==
LOC: YASAS 20:27 → Y3N 07-21 02:06
PROVIDERS: ADMIT Allergy & Immunology; ATTEND Allergy & Immunology
PROC: HZ2ZZZZ Detoxification Services for Substance Abuse Treatment (ICD-10-PCS; principal; 2023-07-21)
DX: F11.23 Opioid dependence with withdrawal (principal); F10.230 Alcohol dependence with withdrawal, uncomplicated; F14.20 Cocaine dependence, uncomplicated; F17.210 Nicotine dependence, cigarettes, uncomplicated; E78.5 Hyperlipidemia, unspecified; J18.9 Pneumonia, unspecified organism; J41.1 Mucopurulent chronic bronchitis; J45.20 Mild intermittent asthma, uncomplicated; R26.89 Other abnormalities of gait and mobility; Z86.19 Personal history of other infectious and parasitic diseases
CPT/HCPCS: 36415; 80048; 80053; 80307; 85027; 86780; 87389; 87635; 87811; 93005; 93010